=== PATIENT | female | born 1940 | race Asian ===

== ENCOUNTER 2019-10-13 14:47 | Observation (INO) | payer BC ==
[2019-10-13 14:57] VITALS: BMI 21.6
--- NOTE | 2019-10-13 15:22 | PDOC ---
Rapid Medical Evaluation Chief Complaint: Blood Pressure Problem Time Seen by Provider: 10/13/19 15:08 Medical Evaluation: Vital Signs Temp Pulse Resp BP Pulse Ox 98 F 73 18 158/72 98 10/13/19 14:53 10/13/19 14:53 10/13/19 14:53 10/13/19 14:53 10/13/19 14:53 10/13/19 15:09 Pt presents to the ER for evaluation of headache and elevated bp. She states her head feels heavy and her L arm feels "different". [employer] Rec[employer] Dr. Zuniga. Denies chest pain. Exam: Neurologically intact with no focal deficits. Orders: labs, IV Pt to proceed to the ER for further evaluation Discharge Disposition - Diagnosis Headache Qualifiers: Headache type: unspecified Headache chronicity pattern: acute headache Intractability: not intractable Qualified Code(s): R51 - Headache - Referrals - Patient Instructions - Post Discharge Activity
[2019-10-13 16:22] LABS: BASO % 0.6 % (0-2.0); EOS % 1.4 % (0-4.5); HEMOGLOBIN 13.7 GM/dL (10.7-15.3); LYMPH % 20.5 % (8-40); MCH 31.8 pg (25.7-33.7); MCHC 34.3 g/dl (32.0-36.0); MEAN CELL VOLUME 92.7 fl (80-96); MEAN PLT VOLUME 7.7 fl (7.5-11.1); MONO % 4.9 % (3.8-10.2); NEUT % 72.6 % (42.8-82.8); PLATELET COUNT 298 K/MM3 (134-434); RBC 4.31 M/mm3 (3.60-5.2)
[2019-10-13 16:53] LABS: ALBUMIN 4.5 g/dl (3.4-5.0); ALK PHOS 71 U/L (45-117); ANION GAP 9 MMOL/L (8-16); BILIRUBIN,TOTAL 0.3 mg/dL (0.2-1); BLOOD UREA NITROGEN 14.3 mg/dL (7-18); CALCIUM 9.4 mg/dL (8.5-10.1); CHLORIDE 100 mmol/L (98-107); CO2 26 mmol/L (21-32); CREATININE 0.8 mg/dL (0.55-1.3); GLUCOSE,RANDOM 211 mg/dL (74-106); POTASSIUM 4.1 mmol/L (3.5-5.1); SGOT/AST 18 U/L (15-37); SGPT/ALT 22 U/L (13-61); SODIUM 135 mmol/L (136-145)
[2019-10-13 17:10] LABS: URINE APPEARANCE CLEAR; URINE BILIRUBIN NEGATIVE (NEGATIVE); URINE COLOR YELLOW; URINE GLUCOSE (UA) TRACE (NEGATIVE); URINE KETONE NEGATIVE (NEGATIVE); URINE LEUK ESTERASE NEGATIVE (NEGATIVE); URINE NITRITE NEGATIVE (NEGATIVE); URINE PROTEIN NEGATIVE (NEGATIVE); URINE UROBILINOGEN 0.2 mg/dL (0.2-1.0)
--- NOTE | 2019-10-13 18:10 | PDOC ---
History of Present Illness - General Chief Complaint: Blood Pressure Problem Stated Complaint: HYPERTENSIO Time Seen by Provider: 10/13/19 15:08 History Source: Patient Exam Limitations: No Limitations - History of Present Illness Initial Comments: 10/13/19 18:02 HISTORY OF PRESENT ILLNESS: 79-year-old woman with past medical history of hypertension, hyperlipidemia, borderline diabetes, glaucoma, TIA presents emergency department for evaluation of elevated blood pressure at home accompanied by a 6/10 coronal headache, left arm tingling and a "strange sensation in my chest" starting this morning. She denies the feeling in her chest is painful. She denies any shortness of breath, cough, blurry vision, dizziness. Patient reports second cook and baker (Dr. Spangler) recently changed her blood pressure medicine as she was experiencing some palpitations and tachycardia. Patient reports she is currently taking atenolol, losartan and hydrochlorothiazide to manage her blood pressure. She reports this feeling in her chest has been intermittent and is started taking homeopathic medications which were recommended to her while she was in the [facility] in June. She states her second cook and baker is aware of these homeopathic medicines and has made the recommendation that the patient discontinue use. Patient reports her neurologist has placed her on Plavix which is been on hold as she is due for cataract surgery on 10/19. No recent travel or sick contacts. PAST MEDICAL HISTORY: See HPI SURGICAL HISTORY: Denies ALLERGIES: Aspirin; walnuts REVIEW OF SYSTEMS General/Constitutional: Denies fever or chills. Denies weakness, weight change. HEENT: Denies change in vision. Denies ear pain or discharge. Denies sore throat. Cardiovascular: See HPI Respiratory: Denies cough, wheezing, or hemoptysis. Gastrointestinal: Denies nausea, vomiting, diarrhea or constipation. Denies rectal bleeding. Genitourinary: Denies dysuria, frequency, or change in urination. Musculoskeletal: Denies joint or muscle swelling or pain. Denies neck or back pain. Skin and breasts: Denies rash or easy bruising. Neurologic: See HPI Psychiatric: Denies depression or anxiety. Endocrine: Denies increased thirst. Denies abnormal weight change. Hematologic/Lymphatic: Denies anemia, easy bleeding, or history of blood clots. Allergic/Immunologic: Denies hives or skin allergy. Denies latex allergy. PHYSICAL EXAM General Appearance: Well-appearing, appropriately dressed. No apparent distress , no intoxication. HEENT: EOMI, PERRLA, normal ENT inspection, normal voice, TMs normal, pharynx normal. No conjunctival pallor. No photophobia, scleral icterus. Neck: Supple. Trachea midline. No tenderness, rigidity, carotid bruit, stridor , lymphadenopathy, or thyromegaly. Respiratory/Chest: Lungs CTAB. No shortness of breath, chest tenderness, respiratory distress, accessory muscle use. No crackles, rales, rhonchi, stridor , wheezing, dullness Cardiovascular: RRR. S1, S2. No JVD, murmur, bradycardia, tachycardia. Vascular Pulses: Dorsalis-Pedis (R): 2+, Dorsalis-Pedis (L): 2+ Gastrointestinal/Abdominal: Normal bowel sounds. Abdomen soft, non-distended. No tenderness or rebound tenderness. No organomegaly, pulsatile mass, guarding, hernia, hepatomegaly, splenomegaly. Lymphatic: No adenopathy, tenderness. Musculoskeletal/Extremities: Normal inspection. FROM of all extremities, normal capillary refill. Pelvis Stable. No CVA tenderness. No tenderness to extremities, pedal edema, swelling, erythema or deformity. Integumentary: Appropriate color, dry, warm. No cyanosis, erythema, jaundice or rash Neurologic: donor relations coordinator II-XII intact. Fully oriented, alert. Appropriate mood/affect. Motor strength 5/5. No appreciable EOM palsy, facial droop or sensory deficit. Able to perform rapid alternating movements without difficulty. Past History - Past Medical History Allergies/Adverse Reactions: Allergies Allergy/AdvReac Type Severity Reaction Status Date / Time aspirin Allergy Verified 10/13/19 17:59 walnut Allergy Verified 10/13/19 18:00 Home Medications: Ambulatory Orders Atenolol [Tenormin -] 25 mg PO DAILY 10/13/19 Clopidogrel Bisulfate [Plavix] 75 mg PO Q2D 10/13/19 Latanoprost 0.005% Eye Drops [Xalatan 0.005% Eye Drops -] 1 drop OU HS 10/13/19 Losartan Potassium 50 mg PO DAILY 10/13/19 [place]-3 Fatty Acids/Fish Oil [Fish Oil 1,000 mg Capsule] 1 cap PO DAILY Pravastatin Sodium 20 mg PO HS 10/13/19 Chlorthalidone 25 mg PO DAILY #90 tablet 10/14/19 COPD: No HTN: Yes Other medical history: mini stroke 2001 - Psycho Social/Smoking Cessation Hx Smoking History: Never smoked Hx Alcohol Use: No Drug/Substance Use Hx: No *Physical Exam - Vital Signs Last Vital Signs Temp Pulse Resp BP Pulse Ox 98 F 67 20 171/83 H 99 10/13/19 14:53 10/13/19 17:51 10/13/19 17:51 10/13/19 17:51 10/13/19 17:51 Heart Score/ECG Review - History History: Moderately suspicious - Electrocardiogram EKG: Non specific repolarization disturbance - Age Age: >/= 65 - Risk Factors Risk Factors Heart Score: Yes Hx Hypercholesterolemia, Yes Hx Hypertension, Yes Hx Diabetes Based on the list above the patient has:: >/=3 risk factors or Hx atherosclerotic disease - Troponin Troponin: </= normal limit - Score Heart Score - Total: 6 ED Treatment Course - LABORATORY CBC & Chemistry Diagram: 10/14/19 05:30 10/14/19 05:30 - ADDITIONAL ORDERS Additional order review: Laboratory Results 10/13/19 10/13/19 16:29 15:39 Sodium 135 L Potassium 4.1 Chloride 100 Carbon Dioxide 26 Anion Gap 9 BUN 14.3 Creatinine 0.8 Est GFR (CKD-EPI)AfAm 81.27 Est GFR (CKD-EPI)NonAf 70.12 Random Glucose 211 H Calcium 9.4 Total Bilirubin 0.3 AST 18 ALT 22 Alkaline Phosphatase 71 Creatine Kinase 73 Troponin I < 0.02 Total Protein 8.0 Albumin 4.5 Urine Color Yellow Urine Appearance Clear Urine pH 6.0 Ur Specific [place] 1.007 L Urine Protein Negative Urine Glucose (UA) Trace Urine Ketones Negative Urine Blood Negative Urine Nitrite Negative Urine Bilirubin Negative Urine Urobilinogen 0.2 Ur Leukocyte Esterase Negative 10/13/19 15:39 RBC 4.31 MCV 92.7 MCHC 34.3 RDW 13.0 MPV 7.7 Neutrophils % 72.6 Lymphocytes % 20.5 Monocytes % 4.9 Eosinophils % 1.4 Basophils % 0.6 Medical Decision Making - Medical Decision Making 10/13/19 18:21 A/P: 79-year-old woman with headache, chest pain and left arm tingling starting this morning Cranial nerves II through XII grossly intact Able to perform rapid alternating movements Full sensation noted to all extremities Strength is 5/5 in all extremities Differential diagnosis includes but is not limited to-NC, dysrhythmia, electrolyte abnormality, CVA/TIA, hypoglycemia, side effect of homeopathic medications, aortic dissection, hypertension, occult infection Less likely CVA given patient's normal neurologic exam and headache is coronal and poorly localized. Blood pressure mildly elevated on arrival-158/72. Orders per [facility] Chest x-ray CT of the head Contact cardiology Likely admission 10/13/19 18:25 10/13/19 18:26 10/13/19 20:11 Chest x-ray as read by Dr. Valdovinos: No acute chest pathology. CT of the head as read by Dr. Lyn: There is no evidence of acute intracranial hemorrhage, mass lesions or infarctions. There is a mild degree of diffuse cerebral atrophy with sulcal widening and ventricular dilatation. Visualized paranasal sinuses and mastoid ulcers are clear. I will contact the hospitalist service for admission. 10/13/19 21:31 Case has been discussed with the hospitalist who accepts for telemetry observation under Dr. Doyle. Discharge - Discharge Information Problems reviewed: Yes Clinical Impression/Diagnosis: ACS (acute coronary syndrome) Headache Qualifiers: Headache type: unspecified Headache chronicity pattern: acute headache Intractability: not intractable Qualified Code(s): R51 - Headache Condition: Stable - Admission Yes - Follow up/Referral - Patient Discharge Instructions - Post Discharge Activity
[2019-10-13] MEDS ORDERED: ACETAMINOPHEN 500 MG TABLET (FP) PO ONE (20:10)
[2019-10-13] MEDS ORDERED: ACETAMINOPHEN 325 MG TABLET (FP) ONE (20:44)
--- NOTE | 2019-10-13 22:29 | PN ---
Teaching Attending Note Name of Resident: Ramirez Paulino ATTENDING PHYSICIAN STATEMENT I saw and evaluated the patient. I reviewed the resident's note and discussed the case with the resident. I agree with the resident's findings and plan as documented. SUBJECTIVE: 79-year-old woman with hypertension, hyperlipidemia, glaucoma, tia, came to hospital because she noticed she had elevated blood pressure at home. She reported that her systolic blood pressure was 170s and this prompted her to seek medical attention. Allegedly complained of chest pain earlier while in the ER however when I asked her she denied. She did endorse a moderate headache which she attributed to her elevated blood pressure. 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 She sees Dr. Roslyn lamas, who allegedly altered her home medications. She takes homeopathic medicinesneurexan, nervoheel. No history of diabetes however was found to have severe hyperglycemia in the emergency room. When I saw patient, she felt well, headache subsided OBJECTIVE: Last Vital Signs Temp Pulse Resp BP Pulse Ox 98 F 67 20 171/83 H 99 10/13/19 14:53 10/13/19 17:51 10/13/19 17:51 10/13/19 17:51 10/13/19 17:51 GENERAL: Well developed, well nourished. Awake and alert. No acute distress. HEENT: Normocephalic, atraumatic. PERRLA, EOMI. No conjunctival pallor. Sclera are non- icteric. Moist mucous membranes. NECK: Supple. Full ROM. No JVD. Carotid pulses 2+ and symmetric, without bruits. No thyromegaly. No lymphadenopathy. CARDIOVASCULAR: Regular rate and rhythm. No murmurs, rubs, or gallops. Distal pulses are 2+ and symmetric. PULMONARY: No evidence of respiratory distress. Lungs clear to auscultation bilaterally. No wheezing, rales or rhonchi. ABDOMINAL: Soft. Non-tender. Non-distended. No rebound or guarding. No organomegaly. Normoactive bowel sounds. MUSCULOSKELETAL Normal range of motion at all joints. No bony deformities or tenderness. No CVA tenderness. EXTREMITIES: No cyanosis. No clubbing. No edema. No calf tenderness. SKIN: Warm and dry. Normal capillary refill. No rashes. No jaundice. PSYCHIATRIC: Cooperative. Good eye contact. Appropriate mood and affect. Abnormal Lab Results 10/13/19 10/13/19 15:39 16:29 Sodium 135 L Random Glucose 211 H Ur Specific [place] 1.007 L Imaging studies reviewed. EKG showed sinus rhythm with what appears to be premature atrial contractions, no evidence of ischemia ASSESSMENT AND PLAN: 79-year-old woman with Severe hypertension. Chest pain earlier in the emergency room? Now asymptomatic. Telemetry observation Trend troponins Transthoracic echo Cardiology evaluation Monitor vital signs closely Check magnesium Urine toxicology screen Most investigate patient's herbal supplements as listed above to rule out any possible adverse effects such as cardiac arrhythmias #Headachehead CT was negative for any acute insults Tylenol PRN Better blood pressure control #History of CVA/TIA Continue with home dose Plavix #Hypertensionuncontrolled Continue with home dose atenolol, hydrochlorothiazide, losartan Would reconsider atenolol as patient was found to be bradycardic in the emergency room #Diabetes mellitusAppears to be new onset, uncontrolled hyperglycemia not on any medications at home. NovoLog sliding scale, A1c clinical educator IV fluid hydration Diabetic diet #DVT prophylaxisheparin subcutaneously
[2019-10-13] MEDS: HEPARIN NA (PORCINE) 5,000 UNITS/ML 1ML VIAL SQ SCH (22:56)
[2019-10-13] MEDS ORDERED: HEPARIN NA (PORCINE) 5,000 UNITS/ML 1ML VIAL ONE (22:57)
[2019-10-14] MEDS ORDERED: SODIUM CHLORIDE 1,000 ML IV SCH (00:45)
[2019-10-14] MEDS ORDERED: ACETAMINOPHEN 325 MG TABLET (FP) PO PRN (03:30)
--- NOTE | 2019-10-14 03:41 | HP ---
CHIEF COMPLAINT: Numbness and tingling in her left arm, light headedness, blurry vision, and a headache around noon today PCP: Dr. Carney HISTORY OF PRESENT ILLNESS: This is a 79 year old female with PMH of TIA (2001, on Plavix), HTN, HLD, and borderline DM. She presented to the ER after she developed numbness and tingling in her left arm, light headedness, blurry vision, and a headache around noon today. She checked her BP, which was 179/98, and she decided to come to the ER. She denies any chest pain, SOB, nausea, vomiting, abdominal pain , diarrhea, dysuria, palpitations, fevers, or chills. As per the ER she came in with chest pain, but the patient denies any chest pain today. She denies any recent illnesses, sick contacts, or travel. She currently follows Dr. Spangler and Dr. Smith. She is on Plavix for TIA in 2001, which she takes on Mondays, Wednesdays, and Fridays. Her last dose was on Friday, she has stopped Plavix for her upcoming cataract surgery on Oct 19. For her HTN she takes Atenolol, Losartan, HCTZ, and herbal medication from the [facility]. Dr. Spangler is aware and has advised her to stop taking the herbal medication, but the patient would like to continue. She has also had elevated blood glucose in the past, but states that she tried metformin once and had nausea/vomiting. She is currently not interested in insulin or any oral hypoglycemics. She took Amiodarone for PVCs 10 years, but stopped 10 years ago. ER course was notable for: (1) CT Head: no acute pathology (2) CXR: no acute pathology (3) Trop .02 Recent Travel: denies PAST MEDICAL HISTORY: HPI PAST SURGICAL HISTORY: 08/17/2019 L eye cataract surgery Hysterectomy Social History: Smoking: denies Alcohol: denies Drugs: denies Allergies aspirin Allergy (Verified 10/13/19 17:59) walnut Allergy (Verified 10/13/19 18:00) HOME MEDICATIONS: Home Medications Medication Instructions Recorded Atenolol [Tenormin -] 25 mg PO DAILY 10/13/19 Clopidogrel Bisulfate [Plavix] 75 mg PO Q2D 10/13/19 Hydrochlorothiazide 12.5 mg PO DAILY 10/13/19 Latanoprost 0.005% Eye Drops 1 drop OU HS 10/13/19 [Xalatan 0.005% Eye Drops -] Losartan Potassium 50 mg PO DAILY 10/13/19 [place]-3 Fatty Acids/Fish Oil [Fish 1 cap PO DAILY 10/13/19 Oil 1,000 mg Capsule] Pravastatin Sodium 20 mg PO HS 10/13/19 REVIEW OF SYSTEMS CONSTITUTIONAL: Absent: fever, chills, diaphoresis, generalized weakness, malaise, loss of appetite, weight change HEENT: Absent: rhinorrhea, nasal congestion, throat pain, throat swelling, difficulty swallowing, mouth swelling, ear pain, eye pain, visual changes CARDIOVASCULAR: Absent: chest pain, syncope, palpitations, irregular heart rate, lightheadedness , peripheral edema RESPIRATORY: Absent: cough, shortness of breath, dyspnea with exertion, orthopnea, wheezing, stridor, hemoptysis GASTROINTESTINAL: Absent: abdominal pain, abdominal distension, nausea, vomiting, diarrhea, constipation, melena, hematochezia GENITOURINARY: Absent: dysuria, frequency, urgency, hesitancy, hematuria, flank pain, genital pain MUSCULOSKELETAL: Absent: myalgia, arthralgia, joint swelling, back pain, neck pain SKIN: Absent: rash, itching, pallor HEMATOLOGIC/IMMUNOLOGIC: Absent: easy bleeding, easy bruising, lymphadenopathy, frequent infections ENDOCRINE: Absent: unexplained weight gain, unexplained weight loss, heat intolerance, cold intolerance NEUROLOGIC: numbness and tingling left arm Absent: headache, focal weakness or paresthesias, dizziness, unsteady gait, seizure, mental status changes, bladder or bowel incontinence PSYCHIATRIC: Absent: anxiety, depression, suicidal or homicidal ideation, hallucinations. PHYSICAL EXAMINATION Vital Signs - 24 hr 10/13/19 10/13/19 14:53 17:51 Temperature 98 F Pulse Rate 73 Pulse Rate [ 67 Apical] Respiratory 18 20 Rate Blood Pressure 158/72 Blood Pressure 171/83 H [Right Arm] O2 Sat by Pulse 98 99 Oximetry (%) GENERAL: Awake, alert, and fully oriented, in no acute distress. HEAD: Normal with no signs of trauma. EYES: Pupils equal, round and reactive to light, extraocular movements intact, sclera anicteric, conjunctiva clear. No lid lag. EARS, NOSE, THROAT: Ears normal, nares patent, oropharynx clear without exudates. Moist mucous membranes. NECK: Normal range of motion, supple without lymphadenopathy, JVD, or masses. LUNGS: Breath sounds equal, clear to auscultation bilaterally. No wheezes, and no crackles. No accessory muscle use. HEART: Regular rate and rhythm, normal S1 and S2 without murmur, rub or gallop. ABDOMEN: Soft, nontender, not distended, normoactive bowel sounds, no guarding, no rebound, no masses. No hepatomegaly or splenomegaly. MUSCULOSKELETAL: Normal range of motion at all joints. No bony deformities or tenderness. No CVA tenderness. UPPER EXTREMITIES: 2+ pulses, warm, well-perfused. No cyanosis. No clubbing. No peripheral edema. LOWER EXTREMITIES: 2+ pulses, warm, well-perfused. No calf tenderness. No peripheral edema. NEUROLOGICAL: Mild numbness and tingling in L arm, motor 5/5, sensations otherwise intact PSYCHIATRIC: Cooperative. Good eye contact. Appropriate mood and affect. SKIN: Warm, dry, normal turgor, no rashes or lesions noted, normal capillary refill. Laboratory Results - last 24 hr 10/13/19 10/13/19 10/13/19 15:39 15:39 16:29 WBC 7.0 RBC 4.31 Hgb 13.7 Hct 40.0 MCV 92.7 MCH 31.8 MCHC 34.3 RDW 13.0 Plt Count 298 MPV 7.7 Absolute Neuts (auto) 5.1 Neutrophils % 72.6 Lymphocytes % 20.5 Monocytes % 4.9 Eosinophils % 1.4 Basophils % 0.6 Nucleated RBC % 0 Sodium 135 L Potassium 4.1 Chloride 100 Carbon Dioxide 26 Anion Gap 9 BUN 14.3 Creatinine 0.8 Est GFR (CKD-EPI)AfAm 81.27 Est GFR (CKD-EPI)NonAf 70.12 POC Glucometer Random Glucose 211 H Calcium 9.4 Total Bilirubin 0.3 AST 18 ALT 22 Alkaline Phosphatase 71 Creatine Kinase 73 Troponin I < 0.02 Total Protein 8.0 Albumin 4.5 Urine Color Yellow Urine Appearance Clear Urine pH 6.0 Ur Specific [place] 1.007 L Urine Protein Negative Urine Glucose (UA) Trace Urine Ketones Negative Urine Blood Negative Urine Nitrite Negative Urine Bilirubin Negative Urine Urobilinogen 0.2 Ur Leukocyte Esterase Negative 10/13/19 10/14/19 21:20 00:38 WBC RBC Hgb Hct MCV MCH MCHC RDW Plt Count MPV Absolute Neuts (auto) Neutrophils % Lymphocytes % Monocytes % Eosinophils % Basophils % Nucleated RBC % Sodium Potassium Chloride Carbon Dioxide Anion Gap BUN Creatinine Est GFR (CKD-EPI)AfAm Est GFR (CKD-EPI)NonAf POC Glucometer 111 Random Glucose Calcium Total Bilirubin AST ALT Alkaline Phosphatase Creatine Kinase Troponin I < 0.02 Total Protein Albumin Urine Color Urine Appearance Urine pH Ur Specific [place] Urine Protein Urine Glucose (UA) Urine Ketones Urine Blood Urine Nitrite Urine Bilirubin Urine Urobilinogen Ur Leukocyte Esterase ASSESSMENT/PLAN: 79 year old female with PMH of TIA (2001, on Plavix), HTN, HLD, and borderline DM. She presented to the ER after she developed numbness and tingling in her left arm, light headedness, blurry vision, and a headache around noon today. She checked her BP, which was 179/98, and she decided to come to the ER. #HTN - Continue home meds HTZ, losartan, will hold atenolol if pt continues to be bradycardic currently HR in 60s) - Monitor B/P, 171/83 in ER - Cardio consulted - Pt allegedly complained of chest pain in ER, will r/o ACS: trend trops (first negtive), repeat EKG (first showed NSR, no ST changes), tele obs - Echo ordered to assess cardiac function - CT Head: no acute pathology - Must investigate herbal supplementation use further, UTox ordered - Nervoheel 1/4 tablet for palpitations PRN - Nevrexan for insomnia PRN #Headache - Likely 2/2 hypertensive episode - Tylenol PRN #Hx of DM - Glucose 211, down to 111, 116 - Pt not on any home meds, has been on prednisone for 4 weeks following cataract surgery in Aug which may explain elevation - BGM, ISS ACHS ordered - HbA1c ordered #Hx of TIA - On Plavix at home, currently stopped due to upcoming cataract surgery - Will hold for now #FEN - N/S @ 83 - Mg ordered - Na controlled/diet #DVT - Heparin SQ 5000 Visit type - Emergency Visit Emergency Visit: Yes ED Registration Date: 10/13/19 Care time: The patient presented to the Emergency Department on the above date and was hospitalized for further evaluation of their emergent condition. - New Patient This patient is new to me today: Yes Date on this admission: 10/14/19 - Critical Care Critical Care patient: No ATTENDING PHYSICIAN STATEMENT I saw and evaluated the patient. I reviewed the resident's note and discussed the case with the resident. I agree with the resident's findings and plan as documented. SUBJECTIVE: OBJECTIVE: ASSESSMENT AND PLAN:
[2019-10-14] MEDS: HEPARIN NA (PORCINE) 5,000 UNITS/ML 1ML VIAL SQ SCH (06:32)
[2019-10-14 06:50] LABS: BASO % 0.9 % (0-2.0); HEMATOCRIT 36.8 % (32.4-45.2); HEMOGLOBIN 12.7 GM/dL (10.7-15.3); LYMPH % 35.6 % (8-40); MCH 31.8 pg (25.7-33.7); MCHC 34.5 g/dl (32.0-36.0); MEAN PLT VOLUME 7.5 fl (7.5-11.1); MONO % 7.7 % (3.8-10.2); NEUT % 52.8 % (42.8-82.8); PLATELET COUNT 281 K/MM3 (134-434); WHITE BLOOD COUNT 5.6 K/mm3 (4.0-10.0)
[2019-10-14] MEDS ORDERED: INSULIN SLIDING SCALE (NOVOLOG) 1 VIAL SQ SCH (07:00)
[2019-10-14 08:29] LABS: ALK PHOS 60 U/L (45-117); ANION GAP 8 MMOL/L (8-16); BILIRUBIN,TOTAL 0.5 mg/dL (0.2-1); BLOOD UREA NITROGEN 12.5 mg/dL (7-18); CALCIUM 8.6 mg/dL (8.5-10.1); CHLORIDE 106 mmol/L (98-107); CO2 25 mmol/L (21-32); CREATININE 0.7 mg/dL (0.55-1.3); GLUCOSE,RANDOM 117 mg/dL (74-106); POTASSIUM 3.6 mmol/L (3.5-5.1); SGOT/AST 16 U/L (15-37); SGPT/ALT 20 U/L (13-61); SODIUM 140 mmol/L (136-145); TOT PROT 6.7 g/dl (6.4-8.2)
[2019-10-14 08:37] LABS: MAGNESIUM 2.1 mg/dL (1.8-2.4)
[2019-10-14 09:47] LABS: CHOLESTEROL 179 mg/dL (50-200); HDL CHOLESTEROL 44 mg/dL (40-60); LDL CHOLESTEROL (ONLY SJRH) 108 mg/dL (5-100); TRIGLYCERIDES 201 mg/dL (0-150)
[2019-10-14 09:57] LABS: COCAINE, UR NEGATIVE ng/ml (CUTOFF=300); METHADONE, UR NEGATIVE ng/ml (CUTOFF=300); OPIATES, URI NEGATIVE ng/ml (CUTOFF=300); PHENCYCLIDINE,URINE NEGATIVE ng/ml (CUTOFF=25); URINE AMPHETAMINES NEGATIVE ng/ml (CUTOFF=500); URINE BARBITURATES NEGATIVE ng/ml (CUTOFF=200); URINE BENZODIAZEPINES NEGATIVE ng/ml (CUTOFF=200)
[2019-10-14] MEDS ORDERED: LOSARTAN POTASSIUM 50 MG TABLET (FP) PO SCH (10:00)
[2019-10-14] MEDS ORDERED: CLOPIDOGREL BISULFATE 75 MG TABLET (FP) PO SCH (10:00)
[2019-10-14] MEDS ORDERED: HYDROCHLOROTHIAZIDE 12.5 MG CAPSULE (FP) PO SCH (10:00)
[2019-10-14] MEDS ORDERED: OMEGA-3 ACID ETHYL ESTERS (FATTY-ACIDS) 1 GM CAPSULE (FP) PO SCH (10:00)
[2019-10-14] MEDS ORDERED: ATENOLOL 25 MG TABLET (FP) PO SCH (10:00)
[2019-10-14] MEDS ORDERED: LOSARTAN POTASSIUM 50 MG TABLET (FP) ONE (10:58)
[2019-10-14] MEDS ORDERED: HYDROCHLOROTHIAZIDE 25 MG TABLET (FP) ONE (10:58)
[2019-10-14] MEDS ORDERED: ATENOLOL 25 MG TABLET (FP) ONE (10:58)
[2019-10-14 11:06] VITALS: BP 167/77; PULSE 67; TEMP 98
--- NOTE | 2019-10-14 11:58 | DS ---
Physical Exam: SUBJECTIVE: Patient seen and examined, denies headache. agrees to outpatient follow up with Dr. Tijerina. OBJECTIVE: Patient is a 79 year old female with a significant past medical history of hypertension, hyperlipidemia, borderline diabetes, glaucoma, TIA, anxiety/panic , retired RN, who presents emergency department for evaluation of elevated blood pressure at home accompanied by a 6/10 coronal headache, left arm tingling and a "strange sensation in my chest". She denies the feeling in her chest is painful. She denies any shortness of breath, cough, blurry vision, dizziness. Patient reports room attendants (Dr. Spangler) recently changed her blood pressure medicine as she was experiencing some palpitations and tachycardia. Patient reports she is currently taking atenolol, losartan and hydrochlorothiazide to manage her blood pressure. She reports this feeling in her chest has been intermittent and is started taking homeopathic medications which were recommended to her while she was in the [facility] in June. She states her room attendants is aware of these homeopathic medicines and has made the recommendation that the patient discontinue use. Patient reports her neurologist has placed her on Plavix which is been on hold as she is due for cataract surgery on 10/19. Vital Signs Period Temp Pulse Resp BP Sys/Schumacher Pulse Ox Last 24 Hr 97.7 F-98.0 F 51-73 16-20 111-171/65-83 98-100 PHYSICAL EXAM GENERAL: The patient is awake, alert, and fully oriented, in no acute distress. HEAD: Normal with no signs of trauma. EYES: PERRL, extraocular movements intact, sclera anicteric, conjunctiva clear. ENT: Ears normal, nares patent, oropharynx clear without exudates, moist mucous membranes. NECK: Trachea midline, full range of motion, supple. LUNGS: Breath sounds equal, clear to auscultation bilaterally, no wheezes, HEART: Regular rate and rhythm, S1, S2 without murmur, rub or gallop. ABDOMEN: Soft, nontender, nondistended, normoactive bowel sounds, no guarding, no rebound, no hepatosplenomegaly, no masses. EXTREMITIES: no edema. NEUROLOGICAL: Normal speech, gait not observed. PSYCH: Normal mood, normal affect. SKIN: Warm, dry, normal turgor, no rashes or lesions noted. LABS Laboratory Results - last 24 hr 10/13/19 10/13/19 10/13/19 15:39 15:39 16:29 WBC 7.0 RBC 4.31 Hgb 13.7 Hct 40.0 MCV 92.7 MCH 31.8 MCHC 34.3 RDW 13.0 Plt Count 298 MPV 7.7 Absolute Neuts (auto) 5.1 Neutrophils % 72.6 Lymphocytes % 20.5 Monocytes % 4.9 Eosinophils % 1.4 Basophils % 0.6 Nucleated RBC % 0 Sodium 135 L Potassium 4.1 Chloride 100 Carbon Dioxide 26 Anion Gap 9 BUN 14.3 Creatinine 0.8 Est GFR (CKD-EPI)AfAm 81.27 Est GFR (CKD-EPI)NonAf 70.12 POC Glucometer Random Glucose 211 H Hemoglobin A1c % Calcium 9.4 Magnesium Total Bilirubin 0.3 AST 18 ALT 22 Alkaline Phosphatase 71 Creatine Kinase 73 Troponin I < 0.02 Total Protein 8.0 Albumin 4.5 Triglycerides Cholesterol Total LDL Cholesterol HDL Cholesterol Urine Color Yellow Urine Appearance Clear Urine pH 6.0 Ur Specific [place] 1.007 L Urine Protein Negative Urine Glucose (UA) Trace Urine Ketones Negative Urine Blood Negative Urine Nitrite Negative Urine Bilirubin Negative Urine Urobilinogen 0.2 Ur Leukocyte Esterase Negative Opiates Screen Methadone Screen Barbiturate Screen Phencyclidine Screen Ur Amphetamines Screen MDMA (Ecstasy) Screen Benzodiazepines Screen Cocaine Screen U Marijuana (THC) Screen 10/13/19 10/14/19 10/14/19 21:20 00:38 05:30 WBC 5.6 RBC 4.00 Hgb 12.7 Hct 36.8 MCV 92.0 MCH 31.8 MCHC 34.5 RDW 13.0 Plt Count 281 MPV 7.5 Absolute Neuts (auto) 3.0 Neutrophils % 52.8 D Lymphocytes % 35.6 D Monocytes % 7.7 Eosinophils % 3.0 D Basophils % 0.9 Nucleated RBC % 0 Sodium Potassium Chloride Carbon Dioxide Anion Gap BUN Creatinine Est GFR (CKD-EPI)AfAm Est GFR (CKD-EPI)NonAf POC Glucometer 111 Random Glucose Hemoglobin A1c % Calcium Magnesium Total Bilirubin AST ALT Alkaline Phosphatase Creatine Kinase Troponin I < 0.02 Total Protein Albumin Triglycerides Cholesterol Total LDL Cholesterol HDL Cholesterol Urine Color Urine Appearance Urine pH Ur Specific [place] Urine Protein Urine Glucose (UA) Urine Ketones Urine Blood Urine Nitrite Urine Bilirubin Urine Urobilinogen Ur Leukocyte Esterase Opiates Screen Methadone Screen Barbiturate Screen Phencyclidine Screen Ur Amphetamines Screen MDMA (Ecstasy) Screen Benzodiazepines Screen Cocaine Screen U Marijuana (THC) Screen 10/14/19 10/14/19 10/14/19 05:30 05:30 05:47 WBC RBC Hgb Hct MCV MCH MCHC RDW Plt Count MPV Absolute Neuts (auto) Neutrophils % Lymphocytes % Monocytes % Eosinophils % Basophils % Nucleated RBC % Sodium 140 Potassium 3.6 Chloride 106 Carbon Dioxide 25 Anion Gap 8 BUN 12.5 Creatinine 0.7 Est GFR (CKD-EPI)AfAm 95.51 Est GFR (CKD-EPI)NonAf 82.41 POC Glucometer 116 Random Glucose 117 H Hemoglobin A1c % 6.2 Calcium 8.6 Magnesium 2.1 Total Bilirubin 0.5 AST 16 ALT 20 Alkaline Phosphatase 60 Creatine Kinase Cancelled Troponin I < 0.02 Total Protein 6.7 Albumin 4.0 Triglycerides 201 H Cholesterol 179 Total LDL Cholesterol 108 H HDL Cholesterol 44 Urine Color Urine Appearance Urine pH Ur Specific [place] Urine Protein Urine Glucose (UA) Urine Ketones Urine Blood Urine Nitrite Urine Bilirubin Urine Urobilinogen Ur Leukocyte Esterase Opiates Screen Methadone Screen Barbiturate Screen Phencyclidine Screen Ur Amphetamines Screen MDMA (Ecstasy) Screen Benzodiazepines Screen Cocaine Screen U Marijuana (THC) Screen 10/14/19 07:15 WBC RBC Hgb Hct MCV MCH MCHC RDW Plt Count MPV Absolute Neuts (auto) Neutrophils % Lymphocytes % Monocytes % Eosinophils % Basophils % Nucleated RBC % Sodium Potassium Chloride Carbon Dioxide Anion Gap BUN Creatinine Est GFR (CKD-EPI)AfAm Est GFR (CKD-EPI)NonAf POC Glucometer Random Glucose Hemoglobin A1c % Calcium Magnesium Total Bilirubin AST ALT Alkaline Phosphatase Creatine Kinase Troponin I Total Protein Albumin Triglycerides Cholesterol Total LDL Cholesterol HDL Cholesterol Urine Color Urine Appearance Urine pH Ur Specific [place] Urine Protein Urine Glucose (UA) Urine Ketones Urine Blood Urine Nitrite Urine Bilirubin Urine Urobilinogen Ur Leukocyte Esterase Opiates Screen Negative Methadone Screen Negative Barbiturate Screen Negative Phencyclidine Screen Negative Ur Amphetamines Screen Negative MDMA (Ecstasy) Screen Negative Benzodiazepines Screen Negative Cocaine Screen Negative U Marijuana (THC) Screen Negative HOSPITAL COURSE: Date of Admission:10/13/19 Date of Discharge: 10/14/19 chest pain, resolved cleared by cardiology for outpatient follow up discussed with Dr. Tijerina patient started on chlorothalidone as recommended by Patient to see him in the office She denies any headaches, chest pain or shortness of breath Minutes to complete discharge: 45 Discharge Summary Problems reviewed: Yes Reason For Visit: HEADACHE/ACUTE CORONARY SYNDROME Current Active Problems ACS (acute coronary syndrome) (Acute) Headache (Acute) Condition: Stable - Instructions Diet, Activity, Other Instructions: Mrs Kyle: You were admitted for chest pain and have been cleared for discharge home. Please follow up with your primary are doctor as well as Dr. Tijerina. We have called in a new medication to your pharmacy called Chlorathalidone 25mg. This medication is for your blood pressure control. You can take with food. Also Please note this medication replaces the hydrochlorothiazide you are currently taking. Thank you for allowing us to care for you. Ne[facility] [phone] Referrals: Kenneth Spangler MD [Staff Physician] - 1 Week Jose Manuel Carney [Primary Care Provider] - Disposition: HOME - Home Medications Comprehensive Discharge Medication List: Ambulatory Orders Atenolol [Tenormin -] 25 mg PO DAILY 10/13/19 Clopidogrel Bisulfate [Plavix] 75 mg PO Q2D 10/13/19 Latanoprost 0.005% Eye Drops [Xalatan 0.005% Eye Drops -] 1 drop OU HS 10/13/19 Losartan Potassium 50 mg PO DAILY 10/13/19 [place]-3 Fatty Acids/Fish Oil [Fish Oil 1,000 mg Capsule] 1 cap PO DAILY Pravastatin Sodium 20 mg PO HS 10/13/19 Chlorthalidone 25 mg PO DAILY #90 tablet 10/14/19 This patient is new to me today: Yes Date on this admission: 10/29/19 Emergency Visit: Yes ED Registration Date: 10/13/19 Care time: The patient presented to the Emergency Department on the above date and was hospitalized for further evaluation of their emergent condition. Critical Care patient: No - Discharge Referral Referred to [facility] Med P.C.: No
--- NOTE | 2019-10-14 12:23 | PN ---
Progress Note, Physician Chief Complaint: Pt A&Ox3; no chest pain or dyspnea; anxious. History of Present Illness: 79-year-old woman (. 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 She denies the feeling in her chest is painful. She denies any shortness of breath, cough, blurry vision, dizziness. Patient reports government affairs director (Dr. Spangler) recently changed her blood pressure medicine as she was experiencing some palpitations and tachycardia. Patient reports she is currently taking atenolol, losartan and hydrochlorothiazide to manage her blood pressure. She reports this feeling in her chest has been intermittent and is started taking homeopathic medications which were recommended to her while she was in the [facility] in June. She states her government affairs director is aware of these homeopathic medicines and has made the recommendation that the patient discontinue use. Patient reports her neurologist has placed her on Plavix which is been on hold as she is due for cataract surgery on 10/19. No recent travel or sick contacts. PAST MEDICAL HISTORY: See HPI SURGICAL HISTORY: Denies ALLERGIES: Aspirin; walnuts - Current Medication List Current Medications: Active Medications Acetaminophen (Tylenol -) 650 mg PO Q6H PRN PRN Reason: PAIN LEVEL 7 - 10 Atenolol (Tenormin -) 25 mg PO DAILY [facility] Last Admin: 10/14/19 11:06 Dose: 25 mg Atorvastatin Calcium (Lipitor -) 10 mg PO [facility] Heparin Sodium (Porcine) (Heparin -) 5,000 unit SQ TID [facility] Last Admin: 10/14/19 06:32 Dose: 5,000 unit Hydrochlorothiazide (Hctz -) 12.5 mg PO DAILY [facility] Last Admin: 10/14/19 11:06 Dose: 12.5 mg Sodium Chloride (Normal Saline -) 1,000 mls @ 83 mls/hr IV ASDIR [facility] Last Admin: 10/14/19 00:57 Dose: 83 mls/hr Insulin Aspart (Novolog Vial Sliding Scale -) 1 vial SQ ACHS [facility]; Protocol Last Admin: 10/14/19 06:33 Dose: Not Given Latanoprost (Xalatan 0.005% Eye Drops -) 1 drop OU HS [facility] Losartan Potassium (Cozaar -) 50 mg PO DAILY [facility] Last Admin: 10/14/19 11:06 Dose: 50 mg Hskep-0-Yanl Ethyl Esters (Lovaza -) 1 gm PO DAILY [facility] Last Admin: 10/14/19 11:06 Dose: Not Given - Objective Vital Signs: Vital Signs Temperature 98.0 F 10/14/19 11:00 Pulse Rate 67 10/14/19 11:00 Respiratory Rate 16 10/14/19 11:00 Blood Pressure 167/77 10/14/19 11:00 O2 Sat by Pulse Oximetry (%) 98 10/14/19 11:00 Constitutional: Yes: Anxious Eyes: Yes: WNL Labs: CBC, BMP 10/14/19 05:30 10/14/19 05:30 Problem List - Problems (1) HTN (hypertension) Assessment/Plan: Pt has been having a problem controlling blood pressure for the past few months. Amlodipine was stopped because she felt it was making her dizzy. She has been on atenolol 25 mg daily for BP and "palpitations". She was on losartan/HCTZ, 50/12.5 mg daily, but felt it was not strong enough. She has been receiving prednisolone for the past month for an eye disorder ( says she will need cataract surgery in the near future). Stress treadmill test as outpatient: no ischemia or arrhythmias. ECHO: normal LVEF: TNI < 0.02 x 3. Plan: Change HCTZ to chlorthalidone 25 mg daily. Conintue losartan 50 mg daily and aternolol 25 mg daily. F/u BUN/Cr and electrolytes carefully with new changes (K 3.6 today). From a cardiac standpoint, pt may be followed as outpatient. Code(s): I10 - ESSENTIAL (PRIMARY) HYPERTENSION (2) Severe anxiety with panic Code(s): F41.0 - PANIC DISORDER [EPISODIC PAROXYSMAL ANXIETY] (3) Hyperlipidemia Code(s): E78.5 - HYPERLIPIDEMIA, UNSPECIFIED (4) Headache Code(s): R51 - HEADACHE Qualifiers: Headache type: unspecified Headache chronicity pattern: acute headache Intractability: not intractable Qualified Code(s): R51 - Headache
--- NOTE | 2019-10-14 14:27 | EKG ---
Test Reason : Blood Pressure : / mmHG Vent. Rate : 056 BPM Atrial Rate : 056 BPM P-R Int : 190 ms QRS Dur : 080 ms QT Int : 384 ms P-R-T Axes : 047 006 021 degrees QTc Int : 370 ms SINUS BRADYCARDIA WITH SINUS ARRHYTHMIA OTHERWISE NORMAL ECG NO PREVIOUS ECGS AVAILABLE Confirmed by ROSAMARIA GARCIA MD ([id number]) on 10/14/2019 2:27:32 PM Referred By: Confirmed By:ROSAMARIA GARCIA MD
[2019-10-14] MEDS ORDERED: ATORVASTATIN CA 10 MG TABLET (FP) PO SCH (22:00)
[2019-10-14] MEDS ORDERED: LATANOPROST 0.005% OPHTH SOLN 2.5ML BOTTLE OU SCH (22:00)
--- NOTE | 2019-10-15 11:10 | ECHO ---
Name: KIRSTEN RANGEL Exam:Adult Echocardiogram Study Date: 10/14/2019 09:18 AM Age: 79 yrs Reason For Study: CP Height: 59 in Weight: 107 lb BSA: 1.4 m2 MMode/2D Measurements & Calculations IVSd: 0.97 cm Ao root diam: 2.7 cm LVIDd: 3.9 cm LA dimension: 3.2 cm LVIDs: 2.7 cm ACS: 1.5 cm LVPWd: 0.94 cm EDV(Teich): 63.9 ml EPSS: 0.78 cm ESV(Teich): 26.9 ml LVOT diam: 1.7 cm LAV (MOD-bp): 27.5 ml TAPSE: 1.6 cm RV S Surinder: 9.5 cm/sec Doppler Measurements & Calculations MV E max surinder: 103.0 cm/sec MV dec slope: 446.6 cm/sec2 MV A max surinder: 115.1 cm/sec MV E/A: 0.90 MV dec time: 0.23 sec Ao V2 max: 147.0 cm/sec LV V1 max P.7 mmHg Ao max P.6 mmHg LV V1 mean P.1 mmHg Ao V2 mean: 96.6 cm/sec LV V1 max: 96.7 cm/sec Ao mean P.3 mmHg LV V1 mean: 67.9 cm/sec Ao V2 VTI: 38.5 cm LV V1 VTI: 24.4 cm CAIO(I,D): 1.4 cm2 CAIO(V,D): 1.4 cm2 SV(LVOT): 53.7 ml TR max surinder: 223.9 cm/sec TR max P.5 mmHg PA V2 max: 119.4 cm/sec Med Peak E' Surinder: 6.4 cm/sec PA max P.7 mmHg Med E/e': 16.0 PA acc time: 0.10 sec Lat Peak E' Surinder: 7.6 cm/sec Lat E/e': 13.5 PA pr(Accel): 34.6 mmHg Procedure A complete two-dimensional transthoracic echocardiogram was performed (2D, M-mode, Doppler and color flow Doppler). Left Ventricle The left ventricular size, thickness and function are normal. The left ventricular ejection fraction is normal. Ejection Fraction = 60-65%. The left ventricular wall motion is normal. Right Ventricle The right ventricle is normal in size and function. Atria Normal left and right atrial size and function. Mitral Valve There is mild mitral regurgitation. Tricuspid Valve No tricuspid regurgitation. Aortic Valve The aortic valve is trileaflet. No hemodynamically significant valvular aortic stenosis. No aortic regurgitation is present. Pulmonic Valve There is no pulmonic valvular regurgitation. Great Vessels The aortic root is normal size. Pericardium/Pleura There is no pericardial effusion. Interpretation Summary The left ventricular size, thickness and function are normal The right ventricle is normal in size and function. There is mild mitral regurgitation. MD Jared Carias 10/14/2019 02:40 PM
== END 2019-10-14 12:15 | disposition home or self-care (01) ==
LOC: JER 14:47 → INTOOBSV 21:32 → JERBED 21:32
PROVIDERS: ADMIT Internal Medicine; ATTEND Nurse Practitioner Family
PROC: 3E013GC Introduction of Other Therapeutic Substance into Subcutaneous Tissue, Percutaneous Approach (ICD-10-PCS; principal; 2019-10-13)
PROC: 3E0337Z Introduction of Electrolytic and Water Balance Substance into Peripheral Vein, Percutaneous Approach (ICD-10-PCS; 2019-10-13)
DX: I24.9 Acute ischemic heart disease, unspecified (principal); I10 Essential (primary) hypertension; R51 Headache; E78.5 Hyperlipidemia, unspecified; R73.03 Prediabetes; H40.9 Unspecified glaucoma; F41.0 Panic disorder [episodic paroxysmal anxiety]; Z79.02 Long term (current) use of antithrombotics/antiplatelets; Z86.73 Personal history of transient ischemic attack (TIA), and cerebral infarction without residual deficits; Z88.6 Allergy status to analgesic agent; Z91.018 Allergy to other foods
CPT/HCPCS: 36415; 70450-TC; 71046-TC-FY; 80053; 80061; 80307; 81003; 82550; 82962; 83036; 83721; 83735; 84443; 84484; 85025; 93005; 93010; 93306-TC; 96372; 99285-25; G0378; J1644; J7030